=== PATIENT | female | born 1995 | race African-American/Black ===

== ENCOUNTER 2018-02-27 14:46 | Emergency (ER) | payer OTHER ==
[~2018-02-27] VITALS: Ht 157.5 cm; Wt 95.3 kg
[2018-02-27 15:49] LABS: PLATELET COUNT 228 K/uL (152-353)
[2018-02-27 16:00] LABS: POTASSIUM 3.3 mmol/L (3.6-5.2)
== END 2018-02-27 16:59 | disposition home or self-care (01) ==
LOC: ED 14:46
PROVIDERS: Emergency Medicine
DX: M54.5 Low back pain (principal); O23.42 Unspecified infection of urinary tract in pregnancy, second trimester; Z3A.27 27 weeks gestation of pregnancy; W19.XXXA Unspecified fall, initial encounter
CPT/HCPCS: 80053; 81000; 84703; 85027; 99283